=== PATIENT | male | born 2000 | race Caucasian/White ===

== ENCOUNTER 2019-04-14 07:50 | Inpatient (IN) | payer OTHER ==
[2019-04-14] MEDS: ONDANSETRON 4 MG INJ IV ×3 (08:44→20:43)
[2019-04-14] MEDS: SOD CHLORIDE 0.9% 1,000 ML IV (08:44)
[2019-04-14] MEDS: morphine 4 MG/ML VIAL IV (10:17)
[2019-04-14] MEDS ORDERED: ONDANSETRON 4 MG INJ IV (11:30)
[2019-04-14] MEDS ORDERED: ACETAMINOPHEN 325 MG TAB PO (11:30)
[2019-04-14] MEDS ORDERED: NACL 0.9% 3 ML SYG IV (15:00)
[2019-04-14] MEDS ORDERED: DOCUSATE SODIUM 100 MG CAP PO (15:00)
[2019-04-14] MEDS ORDERED: MAGNESIUM HYDROXIDE 30ML CUP PO (15:00)
[2019-04-14] MEDS: morphine 2 MG INJ IV ×2 (16:02→20:21)
[2019-04-14] MEDS: CEFTRIAXONE 1 GM/50 ML (PMX) 50 ML IVPB (16:06)
[2019-04-14] MEDS: DEXTROSE 5%-0.45% NACL 1,000 ML IV (16:07)
[2019-04-14] MEDS ORDERED: GLUCAGON 1 MG INJ IM (16:30)
[2019-04-14] MEDS ORDERED: GLUCOSE GEL 15 GRAM TUBE PO ×2 (16:30)
[2019-04-14] MEDS ORDERED: GLUCOSE GEL 15 GRAM TUBE BUCCAL (16:30)
[2019-04-14] MEDS ORDERED: DEXTROSE 50% 50 ML SYRINGE IV ×2 (16:30)
[2019-04-14] MEDS: INSULIN ASPART [NOVOLOG] 3 ML PEN SC ×2 (17:39→21:06)
[2019-04-15] MEDS: DEXTROSE 5%-0.45% NACL 1,000 ML IV ×2 (00:23→05:16)
[2019-04-15] MEDS: DILTIAZEM 25 MG INJ IV ×2 (00:56→04:04)
[2019-04-15] MEDS: INSULIN ASPART [NOVOLOG] 3 ML PEN SC ×5 (01:00→12:11)
[2019-04-15] MEDS: ZOLPIDEM 5 MG TAB PO ×2 (01:42→22:15)
[2019-04-15] MEDS: ONDANSETRON 4 MG INJ IV ×2 (02:25→22:47)
[2019-04-15] MEDS: morphine 2 MG INJ IV (02:26)
[2019-04-15] MEDS: PANTOPRAZOLE 40 MG INJ IV (06:38)
[2019-04-15] MEDS: LACTATED RINGER'S 1,000 ML IV (08:48)
[2019-04-15] MEDS: SOD CHLORIDE 0.9% 1,000 ML IV ×5 (09:27→16:39)
[2019-04-15] MEDS: ACCU-CHEK XX ×13 (09:30→23:44)
[2019-04-15] MEDS: SOD CHLORIDE 0.9% 500 ML IV (11:58)
[2019-04-15] MEDS ORDERED: METOPROLOL 5 MG INJ IV (12:30)
[2019-04-15] MEDS ORDERED: DEXTROSE 50% 50 ML SYRINGE IV ×2 (12:30)
[2019-04-15] MEDS ORDERED: SOD CHLORIDE 0.9% 1,000 ML IV (12:43)
[2019-04-15] MEDS: MEROPENEM 500MG/50 ML (PMX) 50 ML IVPB ×2 (13:25→20:35)
[2019-04-15] MEDS: INSULIN HUMAN REGULAR 100 UNIT in SOD CHLORIDE 0.9% 99 ML IV (13:54)
[2019-04-15] MEDS ORDERED: ACCU-CHEK XX (14:00)
[2019-04-15] MEDS: METOPROLOL 5 MG INJ IV ×2 (14:14→18:38)
[2019-04-15] MEDS: HYDROmorphONE 1 MG/ML SYG IV (15:08)
[2019-04-16] MEDS: ZOLPIDEM 5 MG TAB PO ×2 (00:24→00:53)
[2019-04-16] MEDS: METOPROLOL 5 MG INJ IV ×4 (00:24→19:02)
[2019-04-16] MEDS: ACCU-CHEK XX ×24 (00:39→23:30)
[2019-04-16] MEDS: SOD CHLORIDE 0.9% 1,000 ML IV ×4 (02:09→20:17)
[2019-04-16] MEDS: INSULIN HUMAN REGULAR 100 UNIT in SOD CHLORIDE 0.9% 99 ML IV ×2 (02:40→22:15)
[2019-04-16] MEDS: MEROPENEM 500MG/50 ML (PMX) 50 ML IVPB ×3 (03:39→20:18)
[2019-04-16] MEDS: PANTOPRAZOLE 40 MG INJ IV (06:03)
[2019-04-16] MEDS: HYDROmorphONE 1 MG/ML SYG IV ×2 (06:22→17:06)
[2019-04-17] MEDS: ACCU-CHEK XX ×24 (00:30→23:43)
[2019-04-17] MEDS: METOPROLOL 5 MG INJ IV ×2 (00:38→05:12)
[2019-04-17] MEDS: MEROPENEM 500MG/50 ML (PMX) 50 ML IVPB ×3 (02:47→21:59)
[2019-04-17] MEDS: SOD CHLORIDE 0.9% 1,000 ML IV ×3 (02:52→23:43)
[2019-04-17] MEDS: HYDROmorphONE 1 MG/ML SYG IV ×2 (02:52→08:39)
[2019-04-17] MEDS: PANTOPRAZOLE 40 MG INJ IV (05:07)
[2019-04-17] MEDS: DILTIAZEM 25 MG INJ IV (14:39)
[2019-04-17] MEDS: INSULIN HUMAN REGULAR 100 UNIT in SOD CHLORIDE 0.9% 99 ML IV (14:46)
[2019-04-17] MEDS: ACETAMINOPHEN 650 MG SUPP PR (16:21)
[2019-04-17] MEDS ORDERED: FUROSEMIDE 20 MG INJ (17:59)
[2019-04-17] MEDS: FUROSEMIDE 20 MG INJ IV (18:12)
[2019-04-18] MEDS: ACCU-CHEK XX ×23 (01:28→22:30)
[2019-04-18] MEDS: LOPERAMIDE 2 MG CAP PO (01:29)
[2019-04-18] MEDS: HYDROmorphONE 1 MG/ML SYG IV ×3 (01:36→20:50)
[2019-04-18] MEDS: MEROPENEM 500MG/50 ML (PMX) 50 ML IVPB ×3 (04:30→20:52)
[2019-04-18] MEDS: PANTOPRAZOLE 40 MG INJ IV (05:43)
[2019-04-18] MEDS: SOD CHLORIDE 0.9% 1,000 ML IV (08:00)
[2019-04-18] MEDS: FUROSEMIDE 20 MG INJ IV (08:11)
[2019-04-18] MEDS: METOPROLOL 5 MG INJ IV (11:47)
[2019-04-18] MEDS: CLONIDINE 0.2 MG/24 HR PATCH TRANSDERM (12:31)
[2019-04-18] MEDS: metroNIDAZOLE 500 MG TAB PO ×2 (15:37→22:30)
[2019-04-18] MEDS: hydrALAzine 20 MG INJ IV (18:17)
[2019-04-18] MEDS: VANCOMYCIN HCL 250 MG/5ML POSYG PO (18:59)
[2019-04-18] MEDS: LACTOBACILLUS RHAMNOSUS CAP PO (20:53)
[2019-04-19] MEDS: ACCU-CHEK XX ×26 (00:07→23:59)
[2019-04-19] MEDS: VANCOMYCIN HCL 250 MG/5ML POSYG PO ×5 (00:07→23:58)
[2019-04-19] MEDS: MEROPENEM 500MG/50 ML (PMX) 50 ML IVPB ×3 (04:04→19:57)
[2019-04-19] MEDS: metroNIDAZOLE 500 MG TAB PO ×3 (06:11→22:03)
[2019-04-19] MEDS: PANTOPRAZOLE 40 MG INJ IV (06:11)
[2019-04-19] MEDS: LACTOBACILLUS RHAMNOSUS CAP PO ×2 (08:24→19:57)
[2019-04-19] MEDS: FUROSEMIDE 20 MG INJ IV (13:18)
[2019-04-19] MEDS: HYDROmorphONE 1 MG/ML SYG IV ×2 (13:34→22:08)
[2019-04-19] MEDS: INSULIN HUMAN REGULAR 100 UNIT in SOD CHLORIDE 0.9% 99 ML IV (15:23)
[2019-04-19] MEDS: hydrALAzine 20 MG INJ IV (15:29)
[2019-04-19] MEDS: INSULIN GLARGINE [LANTus] (100 UNITS/ML) SYG SC (20:01)
[2019-04-20] MEDS: ACCU-CHEK XX ×11 (02:01→11:34)
[2019-04-20] MEDS: MEROPENEM 500MG/50 ML (PMX) 50 ML IVPB ×3 (04:04→22:29)
[2019-04-20] MEDS: metroNIDAZOLE 500 MG TAB PO ×3 (05:54→22:30)
[2019-04-20] MEDS: VANCOMYCIN HCL 250 MG/5ML POSYG PO ×3 (05:54→16:54)
[2019-04-20] MEDS: PANTOPRAZOLE 40 MG INJ IV (05:54)
[2019-04-20] MEDS: HYDROmorphONE 1 MG/ML SYG IV ×4 (06:02→23:04)
[2019-04-20] MEDS: LACTOBACILLUS RHAMNOSUS CAP PO ×2 (08:23→22:30)
[2019-04-20] MEDS: INSULIN GLARGINE [LANTus] (100 UNITS/ML) SYG SC ×2 (08:27→22:50)
[2019-04-20] MEDS: METOPROLOL 25 MG TAB PO ×2 (14:14→22:33)
[2019-04-20] MEDS: INSULIN ASPART [NOVOLOG] 3 ML PEN SC ×3 (16:55→21:00)
[2019-04-21] MEDS: VANCOMYCIN HCL 250 MG/5ML POSYG PO ×5 (00:49→23:31)
[2019-04-21] MEDS: MEROPENEM 500MG/50 ML (PMX) 50 ML IVPB ×3 (04:30→20:03)
[2019-04-21] MEDS: PANTOPRAZOLE (EC) 40 MG TAB PO (06:01)
[2019-04-21] MEDS: metroNIDAZOLE 500 MG TAB PO ×3 (06:01→21:21)
[2019-04-21] MEDS: INSULIN ASPART [NOVOLOG] 3 ML PEN SC ×7 (08:00→20:08)
[2019-04-21] MEDS: ACETAMINOPHEN 325 MG TAB PO ×2 (09:19→21:20)
[2019-04-21] MEDS: METOPROLOL 25 MG TAB PO ×2 (09:20→20:08)
[2019-04-21] MEDS: LACTOBACILLUS RHAMNOSUS CAP PO ×2 (09:20→20:04)
[2019-04-21] MEDS: INSULIN GLARGINE [LANTus] (100 UNITS/ML) SYG SC ×2 (10:27→20:51)
[2019-04-21] MEDS ORDERED: PROMETHAZINE/DM (CUP) PO (14:00)
[2019-04-21] MEDS: ALBUTEROL/IPRATROPIUM (NEB) 3 ML AMP HHN ×2 (14:28→21:12)
[2019-04-21] MEDS: ENOXAPARIN 40 MG/0.4 ML SYG SC (15:07)
[2019-04-22] MEDS: ALBUTEROL/IPRATROPIUM (NEB) 3 ML AMP HHN ×4 (01:56→19:51)
[2019-04-22] MEDS: MEROPENEM 500MG/50 ML (PMX) 50 ML IVPB (03:46)
[2019-04-22] MEDS: VANCOMYCIN HCL 250 MG/5ML POSYG PO ×4 (05:58→23:53)
[2019-04-22] MEDS: PANTOPRAZOLE (EC) 40 MG TAB PO (05:59)
[2019-04-22] MEDS: metroNIDAZOLE 500 MG TAB PO ×3 (05:59→21:52)
[2019-04-22] MEDS: INSULIN ASPART [NOVOLOG] 3 ML PEN SC ×7 (08:00→21:00)
[2019-04-22] MEDS: ENOXAPARIN 40 MG/0.4 ML SYG SC (08:10)
[2019-04-22] MEDS: INSULIN GLARGINE [LANTus] (100 UNITS/ML) SYG SC (08:11)
[2019-04-22] MEDS: METOPROLOL 25 MG TAB PO ×2 (08:13→21:52)
[2019-04-22] MEDS: LACTOBACILLUS RHAMNOSUS CAP PO ×2 (08:13→21:52)
[2019-04-22] MEDS ORDERED: SOD FERRIC GLUC COMPLX 125 MG in SOD CHLORIDE 0.9% 100 ML IVPB (13:00)
[2019-04-22] MEDS ORDERED: GLUCOSE GEL 15 GRAM TUBE PO ×2 (18:00)
[2019-04-22] MEDS ORDERED: GLUCAGON 1 MG INJ IM (18:00)
[2019-04-22] MEDS ORDERED: DEXTROSE 50% 50 ML SYRINGE IV ×2 (18:00)
[2019-04-22] MEDS ORDERED: GLUCOSE GEL 15 GRAM TUBE BUCCAL (18:00)
[2019-04-22] MEDS: metFORMIN (XR) 500 MG TAB PO (21:00)
[2019-04-22] MEDS: ACETAMINOPHEN 325 MG TAB PO (22:08)
[2019-04-23] MEDS: ALBUTEROL/IPRATROPIUM (NEB) 3 ML AMP HHN ×4 (02:20→20:05)
[2019-04-23] MEDS: VANCOMYCIN HCL 250 MG/5ML POSYG PO ×4 (05:27→23:05)
[2019-04-23] MEDS: metroNIDAZOLE 500 MG TAB PO ×3 (05:27→22:20)
[2019-04-23] MEDS: PANTOPRAZOLE (EC) 40 MG TAB PO (05:27)
[2019-04-23] MEDS: ENOXAPARIN 40 MG/0.4 ML SYG SC (08:12)
[2019-04-23] MEDS: INSULIN ASPART [NOVOLOG] 3 ML PEN SC ×4 (08:13→21:00)
[2019-04-23] MEDS: LACTOBACILLUS RHAMNOSUS CAP PO ×2 (08:13→22:20)
[2019-04-23] MEDS: metFORMIN (XR) 500 MG TAB PO ×2 (08:13→22:20)
[2019-04-23] MEDS: METOPROLOL 25 MG TAB PO ×2 (08:14→22:19)
[2019-04-23] MEDS: REPAGLINIDE 2 MG TAB PO (17:55)
[2019-04-23] MEDS: FUROSEMIDE 20 MG INJ IV ×2 (22:19→23:05)
[2019-04-24] MEDS: ALBUTEROL/IPRATROPIUM (NEB) 3 ML AMP HHN ×2 (02:00→09:31)
[2019-04-24] MEDS: PANTOPRAZOLE (EC) 40 MG TAB PO (06:22)
[2019-04-24] MEDS: VANCOMYCIN HCL 250 MG/5ML POSYG PO ×2 (06:22→11:39)
[2019-04-24] MEDS: metroNIDAZOLE 500 MG TAB PO (06:22)
[2019-04-24] MEDS: metFORMIN (XR) 500 MG TAB PO (08:11)
[2019-04-24] MEDS: LACTOBACILLUS RHAMNOSUS CAP PO (08:11)
[2019-04-24] MEDS: METOPROLOL 25 MG TAB PO (08:12)
[2019-04-24] MEDS: ENOXAPARIN 40 MG/0.4 ML SYG SC (08:17)
[2019-04-24] MEDS: INSULIN ASPART [NOVOLOG] 3 ML PEN SC ×2 (08:18→11:41)
[2019-04-24] MEDS: REPAGLINIDE 2 MG TAB PO ×2 (08:25→11:39)
== END 2019-04-24 13:30 | disposition home health service (06) | DRG 438 ==
LOC: ICU 04-15 12:40 → 6WM 04-20 21:21 → FTE 07:50 → ICU 04-15 13:15 → TEL 11:15
DX: K85.10 Biliary acute pancreatitis without necrosis or infection (principal); E11.10 Type 2 diabetes mellitus with ketoacidosis without coma; N17.0 Acute kidney failure with tubular necrosis; I50.31 Acute diastolic (congestive) heart failure; E87.2 Acidosis; E87.1 Hypo-osmolality and hyponatremia; Z68.42 Body mass index [BMI] 45.0-49.9, adult; R17 Unspecified jaundice; A04.8 Other specified bacterial intestinal infections; E87.5 Hyperkalemia; E88.89 Other specified metabolic disorders; R00.0 Tachycardia, unspecified; D72.829 Elevated white blood cell count, unspecified; R03.0 Elevated blood-pressure reading, without diagnosis of hypertension; R16.0 Hepatomegaly, not elsewhere classified; Z79.4 Long term (current) use of insulin; E66.01 Morbid (severe) obesity due to excess calories
CPT/HCPCS: 36415; 36600; 71045; 74176; 74181; 80048; 80053; 80061; 81001; 81003; 82150; 82247; 82248; 82270; 82550; 82553; 82652; 82803; 82962; 83010; 83036; 83540; 83615; 83690; 83735; 84100; 84439; 84443; 84481; 84484; 85025; 85045; 86308; 86644; 86703; 86704; 86709; 86803; 87040-91; 87075; 87081; 87340; 87529; 87536; 93005; 93306; 94640; 96374; 96375; 96376; 97116; 97162; 97530; 99285-25